=== PATIENT | female | born 1950 | race Caucasian/White ===

== ENCOUNTER → 2023-10-15 10:40 | Outpatient (REF) | payer MEDICARE, OTHER, SELFPAY | LOC: WDC 10:40 | PROVIDERS: ATTENDING PHYSICIAN Family Medicine | DX: Z12.31 Encounter for screening mammogram for malignant neoplasm of breast (principal) | CPT/HCPCS: 77063; 77067 ==

== ENCOUNTER → 2023-12-26 14:25 | Outpatient (REF) | payer MEDICARE, OTHER, SELFPAY | LOC: RAD 14:25 | PROVIDERS: ATTENDING PHYSICIAN Specialist; FAMILY PHYSICIAN Family Medicine | DX: M19.012 Primary osteoarthritis, left shoulder (principal) | CPT/HCPCS: 73200 ==

== ENCOUNTER 2024-02-26 06:14 | Day surgery (SDC) | payer MEDICARE, OTHER, SELFPAY ==
[2024-02-07 09:28] VITALS: BMI 26.5
[2024-02-07 11:17] LABS: Hematocrit 41.7 % (37.0-47.0); Hemoglobin 13.8 g/dL (12.0-16.0); Mean Corp Hgb Conc. 33.1 g/dL (33.0-37.0); Mean Corpuscular Hgb 31.1 pg (27.0-31.0); Mean Corpuscular Volume 93.9 fL (81.0-99.0); Mean Platelet Volume 9.4 fL (7.4-10.4); Platelet Count 225 10^3/uL (130-400); Red Blood Cell Count 4.44 10^6/uL (4.20-5.40); White Blood Cell Count 5.4 10^3/uL (4.8-10.8)
[2024-02-07 11:23] LABS: ALT (SGPT) 25 U/L (0-35); AST (SGOT) 36 U/L (14-36); Albumin 4.4 g/dl (3.5-5.0); Alkaline Phosphatase 72 U/L (38-126); Blood Urea Nitrogen 25 mg/dl (7-17); Calcium 10.1 mg/dl (8.4-10.2); Carbon Dioxide 28 mmol/L (22-30); Chloride 103 mmol/L (98-107); Estimated Creatinine Clearance 57 ml/min; Glucose 73 mg/dl (70-99); Potassium 4.3 mmol/L (3.5-5.1); Sodium 138 mmol/L (135-145); Total Bilirubin 0.9 mg/dl (0.2-1.3); eGFR > 60.00
[2024-02-07 12:23] LABS: Glycohemoglobin (HgbA1c) 5.4 % (4.0-5.6)
[2024-02-20 09:00] VITALS: BMI 26.5
[2024-02-26] VITALS (12 sets, daily range): BP systolic 95–152; BP diastolic 58–115; BMI 26.5
[2024-02-26] MEDS: CELEBREX 200 MG PO (08:29)
[2024-02-26] MEDS: TYLENOL 1000 MG PO (08:30)
[2024-02-26] MEDS: NORMOSOL-R/PLASMALYTE-A 1000 IV (08:30)
[2024-02-26] MEDS: EMEND 40 MG PO (09:49)
[2024-02-26] MEDS: DEMEROL 12.5 MG IV (12:49)
[2024-02-26] MEDS: ANCEF 5 IV (14:21)
== END 2024-02-26 14:30 | disposition home or self-care (01) ==
LOC: SDS 06:14
PROVIDERS: ATTENDING PHYSICIAN Specialist; FAMILY PHYSICIAN Family Medicine
DX: M19.012 Primary osteoarthritis, left shoulder (principal)
CPT/HCPCS: 23472; 36415; 73020; 80053; 83036; 85027; 87070; 93005; C1713; C1776

== ENCOUNTER → 2024-03-19 06:39 | Outpatient (REF) | payer MEDICARE, OTHER, SELFPAY ==
[2024-03-19 07:10] LABS: % Basophils 1.3 % (0-2); % Eosinophils 10.5 % (0-6); % Immature Granulocytes 0.6 % (0-0.5); % Lymphocytes 22.2 % (20.5-51.1); % Neutrophils 56.4 % (42.2-75.2); Absolute Basophils 0.1 10^3/uL (0-0.2); Absolute Eosinophils 0.5 10^3/uL (0-0.7); Absolute Lymphocytes 1.1 10^3/uL (1.2-3.4); Absolute Monocytes 0.4 10^3/uL (0.1-0.6); Absolute Neutrophils 2.7 10^3/uL (1.4-6.5); Hematocrit 39.9 % (37.0-47.0); Hemoglobin 13.6 g/dL (12.0-16.0); Mean Corp Hgb Conc. 34.1 g/dL (33.0-37.0); Mean Corpuscular Hgb 32.3 pg (27.0-31.0); Mean Corpuscular Volume 94.8 fL (81.0-99.0); Mean Platelet Volume 8.9 fL (7.4-10.4); Nucleated Red Blood Cells % 0 %; Platelet Count 331 10^3/uL (130-400); Red Blood Cell Count 4.21 10^6/uL (4.20-5.40); Red Cell Dist. Width 12.7 % (11.5-14.5); White Blood Cell Count 4.8 10^3/uL (4.8-10.8)
[2024-03-19 07:37] LABS: ALT (SGPT) 23 U/L (0-35); AST (SGOT) 30 U/L (14-36); Albumin 4.3 g/dl (3.5-5.0); Alkaline Phosphatase 87 U/L (38-126); Blood Urea Nitrogen 21 mg/dl (7-17); Carbon Dioxide 29 mmol/L (22-30); Chloride 101 mmol/L (98-107); Glucose 99 mg/dl (70-99); HDL Cholesterol 60 mg/dl; LDL Cholesterol, Calculated 63 mg/dl; Potassium 4.7 mmol/L (3.5-5.1); Sodium 143 mmol/L (135-145); Total Bilirubin 0.5 mg/dl (0.2-1.3); Total Cholesterol 136 mg/dl (50-199); Total Protein 7.1 g/dl (6.3-8.2); Triglyceride 65 mg/dl (10-149); Very Low Density Lipoprotein 13 mg/dl (0-30); eGFR > 60.00
[2024-03-19 07:52] LABS: Vitamin D, 25-OH*** 66.7 ng/mL (30-80)
[2024-03-19 08:06] LABS: TSH Reflex To Free T4 2.94 uIU/ml (0.47-4.68)
== END ==
LOC: REG 06:39
PROVIDERS: ATTENDING PHYSICIAN Family Medicine
DX: E78.5 Hyperlipidemia, unspecified (principal); D64.9 Anemia, unspecified; Z68.27 Body mass index [BMI] 27.0-27.9, adult; Z01.89 Encounter for other specified special examinations; E78.2 Mixed hyperlipidemia; D72.9 Disorder of white blood cells, unspecified; Z79.899 Other long term (current) drug therapy
CPT/HCPCS: 36415; 80053; 80061; 82306; 84443; 85025

== ENCOUNTER → 2024-07-21 10:13 | Outpatient (REF) | payer MEDICARE, OTHER, SELFPAY ==
[2024-07-21 11:09] LABS: % Eosinophils 4.3 % (0-6); % Immature Granulocytes 0.3 % (0-0.5); % Lymphocytes 18.5 % (20.5-51.1); % Neutrophils 67.9 % (42.2-75.2); Absolute Basophils 0.1 10^3/uL (0-0.2); Absolute Eosinophils 0.3 10^3/uL (0-0.7); Absolute Lymphocytes 1.3 10^3/uL (1.2-3.4); Absolute Monocytes 0.5 10^3/uL (0.1-0.6); Absolute Neutrophils 4.6 10^3/uL (1.4-6.5); Hematocrit 42.9 % (37.0-47.0); Hemoglobin 14.1 g/dL (12.0-16.0); Mean Corp Hgb Conc. 32.9 g/dL (33.0-37.0); Mean Corpuscular Hgb 30.4 pg (27.0-31.0); Mean Corpuscular Volume 92.5 fL (81.0-99.0); Mean Platelet Volume 9.7 fL (7.4-10.4); Nucleated Red Blood Cells % 0 %; Platelet Count 248 10^3/uL (130-400); Red Blood Cell Count 4.64 10^6/uL (4.20-5.40); Red Cell Dist. Width 13.2 % (11.5-14.5); White Blood Cell Count 6.7 10^3/uL (4.8-10.8)
== END ==
LOC: REG 10:13
PROVIDERS: ATTENDING PHYSICIAN Family Medicine
DX: R79.89 Other specified abnormal findings of blood chemistry (principal)
CPT/HCPCS: 36415; 85025

== ENCOUNTER → 2024-10-20 10:25 | Outpatient (REF) | payer MEDICARE, OTHER, SELFPAY | LOC: WDC 10:25 | PROVIDERS: ATTENDING PHYSICIAN Family Medicine | DX: Z12.31 Encounter for screening mammogram for malignant neoplasm of breast (principal) | CPT/HCPCS: 77063; 77067 ==

== ENCOUNTER → 2025-03-13 08:45 | Outpatient (REF) | payer MEDICARE, OTHER, SELFPAY ==
[2025-03-13 09:39] LABS: Urine Character Clear (Clear)
[2025-03-13 09:42] LABS: Hematocrit 43.0 % (37.0-47.0); Hemoglobin 14.2 g/dL (12.0-16.0); Mean Corp Hgb Conc. 33.0 g/dL (33.0-37.0); Mean Corpuscular Volume 92.7 fL (81.0-99.0); Nucleated Red Blood Cells % 0 %; Platelet Count 248 10^3/uL (130-400); Red Cell Dist. Width 12.7 % (11.5-14.5)
[2025-03-13 11:42] LABS: ALT (SGPT) 25 U/L (0-35); AST (SGOT) 31 U/L (14-36); Albumin 4.6 g/dl (3.5-5.0); Alkaline Phosphatase 67 U/L (38-126); Blood Urea Nitrogen 16 mg/dl (7-17); Calcium 10.2 mg/dl (8.4-10.2); Carbon Dioxide 29 mmol/L (22-30); Chloride 101 mmol/L (98-107); Glucose 85 mg/dl (70-99); HDL Cholesterol 67 mg/dl; LDL Cholesterol, Calculated 62 mg/dl; Potassium 4.3 mmol/L (3.5-5.1); Sodium 137 mmol/L (135-145); Total Protein 7.5 g/dl (6.3-8.2); Very Low Density Lipoprotein 13 mg/dl (0-30); eGFR > 60.00
[2025-03-13 13:20] LABS: Vitamin D, 25-OH*** > 126 ng/mL (30-80)
[2025-03-13 13:34] LABS: TSH 2.10 uIU/ml (0.47-4.68)
== END ==
LOC: REG 08:45
PROVIDERS: ATTENDING PHYSICIAN Family Medicine
DX: E78.5 Hyperlipidemia, unspecified (principal); D64.9 Anemia, unspecified; Z79.899 Other long term (current) drug therapy; Z00.00 Encounter for general adult medical examination without abnormal findings
CPT/HCPCS: 36415; 80053; 80061; 81003; 82306; 84443; 85025

== ENCOUNTER → 2025-04-22 13:46 | Outpatient (REF) | payer MEDICARE, OTHER, SELFPAY | LOC: RAD 13:46 | PROVIDERS: ATTENDING PHYSICIAN Family Medicine | DX: I70.90 Unspecified atherosclerosis (principal); I35.1 Nonrheumatic aortic (valve) insufficiency | CPT/HCPCS: 93306; 93880 ==

== ENCOUNTER → 2025-06-10 08:40 | Outpatient (REF) | payer MEDICARE, OTHER, SELFPAY | LOC: RAD 08:40 | PROVIDERS: ATTENDING PHYSICIAN Family Medicine | DX: Z13.820 Encounter for screening for osteoporosis (principal); Z78.0 Asymptomatic menopausal state | CPT/HCPCS: 77080 ==

== ENCOUNTER → 2025-06-16 10:31 | Outpatient (REF) | payer MEDICARE, OTHER, SELFPAY ==
[2025-06-16 12:13] LABS: Vitamin D, 25-OH*** 74.7 ng/mL (30-80)
== END ==
LOC: REG 10:31
PROVIDERS: ATTENDING PHYSICIAN Family Medicine
DX: E55.9 Vitamin D deficiency, unspecified (principal)
CPT/HCPCS: 36415; 82306